=== PATIENT | male | born 1950 | race Caucasian/White ===

== ENCOUNTER 2024-08-05 07:07 | Day surgery (SDC) | payer MEDICARE, OTHER ==
[~2024-08-05] VITALS: Ht 167.6 cm; Wt 72.9 kg
[~2024-08-05 07:07] MED LIST: ASPIRIN 32325 MG/TA1; FOLIC ACID 11 MG/TA1 PO; LIPITOR 40MG TA40 MG; LR 1,000 ML IV SCH; MOBIC 7.5MG7.5 MG PO; NATURE'S BLEND100 M2 PO; NICODERM C21 MG/PATC TD; NORCO 325 MG-51 TAB PO; NORVASC 5MG5 MG/TAB PO; OMEGA-3 1000 MG1 CAP PO; Ondansetron 4 MG/2 ML VIAL IV PRN; PHOSLO667 MG PO; PLAVIX 75MG TAB75 MG; SODIUM BICARBO650 MG PO; TOPROL XL 50MG50 MG PO; TYLENOL #21 TAB PO; XANAX .25M0.25 MG/TA PO
[2024-08-05 08:01] VITALS: BP 167/68; PULSE 87; TEMP 97.8
--- NOTE | 2024-08-05 08:08 | NUR ---
Pt admitted to [facility]. Admission assessments complete. Consent signed. Abdi [employer] updated that patient is a dialysis patient, no changes to fluid orders. LUE restricted, band placed, YUNIOR fistula. Medications, allergies, and pharmacy confirmed. at bedside. Questions answered. Pt is a M-W-F dialysis patient. Call light within reach.
[2024-08-05] MEDS ORDERED: ASPIRIN E.C. 8181 MG PO (08:10)
[2024-08-05] MEDS ORDERED: FENOGLIDE40 MG PO (08:11)
[2024-08-05] MEDS ORDERED: XANAX .25M0.25 MG/TA PO (08:12)
[2024-08-05] MEDS ORDERED: TOPROL XL 25MG25 MG PO (08:14)
[2024-08-05] MEDS ORDERED: NEURONTIN100 MG/CAP PO (08:15)
[2024-08-05] MEDS ORDERED: Lidocaine PF 2% (20 MG/ML) 5 ML VIAL ONE (08:46)
[2024-08-05] MEDS ORDERED: ePHEDrine 50 MG/ML VIAL ONE (09:20)
[2024-08-05 09:55] VITALS: BP 107/74; PULSE 82; TEMP 96.8
--- NOTE | 2024-08-05 09:55 | NUR ---
PATIENT RETURNED TO BAY 3 VIA CART, ALERT AND ORIENTED X3. STATES "I FEEL PRETTY GOOD". DENIES PAIN, NAUSEA AND SHORTNESS OF BREATH. BREATHING REGULAR AND UNLABORED ON ROOM AIR. SKIN WARM AND DRY. IV IN PLACE. NURSE HANDOFF COMPLETED IN ROOM. SEE CHART FOR VITAL SIGNS. PATIENT HAD WATER AND JELLO. BOTH TOLERATED WELL. NO DYSPHAGIA. LUE RESTRICTION BAND IN PLACE. PATIENT RESTING IN CART. NO COMPLAINTS. CALL LIGHT IN REACH.
[2024-08-05 10:00] VITALS: BP 136/83; PULSE 81
[2024-08-05 10:15] VITALS: BP 149/67; PULSE 80
[2024-08-05 10:30] VITALS: BP 158/79; PULSE 82
[2024-08-05 10:45] VITALS: BP 153/77; PULSE 79
--- NOTE | 2024-08-05 11:00 | NUR ---
1030: DR. FRANKLIN MET WITH PATIENT AND SPOUSE IN ROOM TO DISCUSS PROCEDURE. 1053: DISCHARGE TEACHING COMPLETED WITH PRINTED EDUCATION AND INSTRUCTIONS SENT HOME WITH PATIENT. PATIENT VERBALIZED UNDERSTANDING OF TEACHING. 1055: IV REMOVED. GAUZE AND COBAN PLACED OVER SITE. 1100: PATIENT DISCHARGED HOME WITH SPOUSE TRANSPORT.
== END 2024-08-05 11:00 | disposition home or self-care (01) ==
LOC: SDCO 07:07
DX: K44.9 Diaphragmatic hernia without obstruction or gangrene (principal); R19.5 Other fecal abnormalities; I65.29 Occlusion and stenosis of unspecified carotid artery; K57.31 Diverticulosis of large intestine without perforation or abscess with bleeding; K64.3 Fourth degree hemorrhoids; D12.0 Benign neoplasm of cecum; K63.5 Polyp of colon; K52.9 Noninfective gastroenteritis and colitis, unspecified; K64.4 Residual hemorrhoidal skin tags; D63.1 Anemia in chronic kidney disease; N18.6 End stage renal disease; Z99.2 Dependence on renal dialysis; Z79.02 Long term (current) use of antithrombotics/antiplatelets; Z87.891 Personal history of nicotine dependence; Z79.82 Long term (current) use of aspirin
CPT/HCPCS: J2704; J7120